=== PATIENT | male | born 1990 | race Caucasian/White ===

== ENCOUNTER 2021-09-08 12:43 | Inpatient (IN) | payer BC ==
[2021-09-08] MEDS ORDERED: MAG HYDROX/AL HYDROX/SIMETH 30 ML UNIT-DOSE CUP PO PRN (13:12)
[2021-09-08] MEDS ORDERED: BISMUTH SUBSALICYLATE 524 MG/30 ML PO PRN (13:12)
[2021-09-08] MEDS ORDERED: methaDONE HCL 10 MG TABLET (FOR DETOX USE ONLY) PO ONE (13:12)
[2021-09-08] MEDS ORDERED: MAGNESIUM HYDROX 2400MG/30ML ORAL SUSPENSION 30 ML CUP PO PRN (13:12)
[2021-09-08] MEDS ORDERED: ACETAMINOPHEN 325 MG TABLET (FP) PO PRN ×2 (13:12)
[2021-09-08] MEDS ORDERED: ONDANSETRON *ODT* 4 MG TABLET SL PRN (13:12)
[2021-09-08] MEDS ORDERED: METHOCARBAMOL 500 MG TABLET PO PRN (13:12)
[2021-09-08] MEDS ORDERED: cloNIDine HCL 0.1 MG TABLET PO PRN (13:12)
[2021-09-08] MEDS ORDERED: NICOTINE 10 MG CARTRIDGE (INHALER) IH PRN (13:12)
[2021-09-08] MEDS ORDERED: MAGNESIUM CITRATE 300 ML BOTTLE PO PRN (13:12)
[2021-09-08] MEDS ORDERED: LOPERAMIDE HCL 2 MG CAPSULE PO PRN (13:12)
[2021-09-08] MEDS ORDERED: MENTHOL/PHENOL 1 EACH UD MM PRN (13:12)
[2021-09-08] MEDS ORDERED: diazePAM 5 MG TABLET PO PRN (13:12)
[2021-09-08] MEDS ORDERED: IBUPROFEN 400 MG TABLET (FP) PO PRN (13:12)
[2021-09-08] MEDS ORDERED: NICOTINE 14 MG/24 HOURS TOPICAL PATCH TD SCH (13:15)
[2021-09-08] MEDS ORDERED: PRENATAL VITAMINS W/ FOLIC ACID TABLET (FP) PO SCH (13:15)
[2021-09-08] MEDS ORDERED: hydrOXYzine PAMOATE 25 MG CAPSULE (FP) PO SCH (14:00)
[2021-09-08 14:31] VITALS: BP 132/82; PULSE 93; TEMP 97.8; BMI 31.5
[2021-09-08 16:10] LABS: ALBUMIN 3.7 g/dl (3.4-5.0); BLOOD UREA NITROGEN 15.8 mg/dL (7-18)
[2021-09-08 16:13] LABS: CREATININE 0.8 mg/dL (0.55-1.3); HEMATOCRIT 40.6 % (35.4-49); HEMOGLOBIN 13.8 GM/dL (11.7-16.9); MCH 30.6 pg (25.7-33.7); MEAN CELL VOLUME 90.2 fl (80-96); MEAN PLT VOLUME 7.4 fl (7.5-11.1); PLATELET COUNT 252 10^3/uL (134-434); RDW 13.9 % (11.9-15.9)
[2021-09-08 16:15] LABS: BILIRUBIN,TOTAL 0.2 mg/dL (0.2-1); TOT PROT 7.2 g/dl (6.4-8.2)
[2021-09-08] MEDS ORDERED: diazePAM 5 MG TABLET PO SCH (17:00)
[2021-09-08] MEDS ORDERED: GABAPENTIN 300 MG CAPSULE PO SCH (22:00)
[2021-09-08] MEDS ORDERED: MELATONIN 5 MG TABLETS PO SCH (22:00)
[2021-09-08] MEDS ORDERED: THIAMINE HCL 100 MG TABLET (FP) PO SCH (22:00)
[2021-09-10] MEDS ORDERED: diazePAM 5 MG TABLET PO SCH (06:00)
[2021-09-10] MEDS ORDERED: methaDONE HCL 10 MG TABLET (FOR DETOX USE ONLY) PO ONE (10:00)
[2021-09-11] MEDS ORDERED: diazePAM 5 MG TABLET PO SCH (06:00)
[2021-09-12] MEDS ORDERED: diazePAM 5 MG TABLET PO ONE (06:00)
[2021-09-12] MEDS ORDERED: methaDONE HCL 10 MG TABLET (FOR DETOX USE ONLY) PO ONE (10:00)
== END 2021-09-08 23:59 | disposition home or self-care (01) | DRG 773 ==
LOC: YASAS 12:43 → Y6N 15:05
PROVIDERS: ADMIT Allergy & Immunology; ATTEND Allergy & Immunology
PROC: HZ2ZZZZ Detoxification Services for Substance Abuse Treatment (ICD-10-PCS; principal; 2021-09-08)
DX: F11.23 Opioid dependence with withdrawal (principal); F14.20 Cocaine dependence, uncomplicated; F13.20 Sedative, hypnotic or anxiolytic dependence, uncomplicated; F12.20 Cannabis dependence, uncomplicated; F17.210 Nicotine dependence, cigarettes, uncomplicated; F41.9 Anxiety disorder, unspecified; F32.A Depression, unspecified
CPT/HCPCS: 36415; 80053; 85027; 86780; C9803; U0003; U0005

== ENCOUNTER 2021-09-09 15:40 | Inpatient (IN) | payer BC ==
[2021-09-09 16:06] VITALS: BMI 31.5
[2021-09-09] MEDS ORDERED: NALOXONE (NARCAN) HCL 4 MG/0.1 ML SPRAY NS PRN (19:21)
[2021-09-09] MEDS ORDERED: ONDANSETRON *ODT* 4 MG TABLET SL PRN (19:21)
[2021-09-09] MEDS ORDERED: methaDONE HCL 10 MG TABLET (FOR DETOX USE ONLY) PO ONE ×2 (19:21→21:00)
[2021-09-09] MEDS ORDERED: MAGNESIUM CITRATE 300 ML BOTTLE PO PRN (19:21)
[2021-09-09] MEDS ORDERED: IBUPROFEN 400 MG TABLET (FP) PO PRN (19:21)
[2021-09-09] MEDS ORDERED: DICYCLOMINE HCL 10 MG CAPSULE PO PRN (19:21)
[2021-09-09] MEDS ORDERED: ACETAMINOPHEN 325 MG TABLET (FP) PO PRN ×2 (19:21)
[2021-09-09] MEDS ORDERED: BISMUTH SUBSALICYLATE 524 MG/30 ML PO PRN (19:21)
[2021-09-09] MEDS ORDERED: MAG HYDROX/AL HYDROX/SIMETH 30 ML UNIT-DOSE CUP PO PRN (19:21)
[2021-09-09] MEDS ORDERED: NICOTINE POLACRILEX 4 MG GUM BUC PRN (19:21)
[2021-09-09] MEDS ORDERED: MENTHOL/PHENOL 1 EACH UD MM PRN (19:21)
[2021-09-09] MEDS ORDERED: LOPERAMIDE HCL 2 MG CAPSULE PO PRN (19:21)
[2021-09-09] MEDS ORDERED: MAGNESIUM HYDROX 2400MG/30ML ORAL SUSPENSION 30 ML CUP PO PRN (19:21)
[2021-09-09] MEDS ORDERED: P-EPHED 60MG/TRIPROLIDI 2.5MG TABLET PO PRN (19:30)
[2021-09-09] MEDS ORDERED: methaDONE HCL 10 MG TABLET (FOR DETOX USE ONLY) ONE (21:43)
[2021-09-09] MEDS ORDERED: MELATONIN 5 MG TABLETS PO SCH (22:00)
[2021-09-09] MEDS ORDERED: hydrOXYzine PAMOATE 25 MG CAPSULE (FP) PO SCH (22:00)
[2021-09-09] MEDS: diazePAM 5 MG TABLET PO PRN (23:43)
[2021-09-09] MEDS: THIAMINE HCL 100 MG TABLET (FP) PO SCH (23:43)
[2021-09-10] MEDS ORDERED: methaDONE HCL 10 MG TABLET (FOR DETOX USE ONLY) ONE (10:13)
[2021-09-10] MEDS: METHOCARBAMOL 500 MG TABLET PO PRN (10:51)
[2021-09-10] MEDS: diazePAM 5 MG TABLET PO PRN ×2 (10:51→22:08)
[2021-09-10] MEDS: PRENATAL VITAMINS W/ FOLIC ACID TABLET (FP) PO SCH (10:52)
[2021-09-10] MEDS: NICOTINE 21 MG/24 HOURS TOPICAL PATCH TD SCH (10:52)
[2021-09-10] MEDS: GABAPENTIN 300 MG CAPSULE PO SCH ×2 (14:54→22:08)
[2021-09-10] MEDS: QUEtiapine FUMARATE 100 MG TABLET (FP) PO SCH (22:08)
[2021-09-10] MEDS: THIAMINE HCL 100 MG TABLET (FP) PO SCH (22:08)
[2021-09-10] MEDS: SUVOREXANT 10 MG TABLET PO PRN (22:09)
[2021-09-10] MEDS: cloNIDine HCL 0.1 MG TABLET PO PRN (22:11)
[2021-09-10] MEDS: NICOTINE 10 MG CARTRIDGE (INHALER) IH PRN (23:05)
[2021-09-11] MEDS: GABAPENTIN 300 MG CAPSULE PO SCH ×4 (06:16→22:09)
[2021-09-11] MEDS: cloNIDine HCL 0.1 MG TABLET PO PRN ×3 (07:47→22:12)
[2021-09-11] MEDS ORDERED: methaDONE HCL 10 MG TABLET (FOR DETOX USE ONLY) PO ONE (10:00)
[2021-09-11] MEDS: NICOTINE 21 MG/24 HOURS TOPICAL PATCH TD SCH (10:25)
[2021-09-11] MEDS: diazePAM 5 MG TABLET PO PRN (10:27)
[2021-09-11] MEDS: PRENATAL VITAMINS W/ FOLIC ACID TABLET (FP) PO SCH (10:28)
[2021-09-11] MEDS: METHOCARBAMOL 500 MG TABLET PO PRN (10:28)
[2021-09-11] MEDS: NICOTINE 10 MG CARTRIDGE (INHALER) IH PRN ×2 (10:29→22:12)
[2021-09-11 16:40] LABS: HEMATOCRIT 42.5 % (35.4-49); HEMOGLOBIN 14.3 GM/dL (11.7-16.9); MCH 30.4 pg (25.7-33.7); MCHC 33.8 g/dl (32.0-35.9); MEAN PLT VOLUME 7.5 fl (7.5-11.1); PLATELET COUNT 268 10^3/uL (134-434); RBC 4.72 M/mm3 (4.00-5.60); RDW 14.3 % (11.9-15.9); WHITE BLOOD COUNT 17.4 K/mm3 (4.0-10.0)
[2021-09-11 16:42] LABS: CALCIUM 9.5 mg/dL (8.5-10.1)
[2021-09-11 16:43] LABS: ALBUMIN 3.5 g/dl (3.4-5.0)
[2021-09-11 16:46] LABS: CREATININE 0.9 mg/dL (0.55-1.3)
[2021-09-11 16:47] LABS: BILIRUBIN,TOTAL 0.3 mg/dL (0.2-1)
[2021-09-11 16:48] LABS: TOT PROT 6.9 g/dl (6.4-8.2)
[2021-09-11] MEDS: SUVOREXANT 10 MG TABLET PO PRN (22:09)
[2021-09-11] MEDS: QUEtiapine FUMARATE 100 MG TABLET (FP) PO SCH (22:09)
[2021-09-11] MEDS: THIAMINE HCL 100 MG TABLET (FP) PO SCH (22:09)
[2021-09-12] MEDS: diazePAM 5 MG TABLET PO PRN ×4 (00:31→18:10)
[2021-09-12] MEDS: METHOCARBAMOL 500 MG TABLET PO PRN ×3 (00:31→22:24)
[2021-09-12] MEDS: hydrOXYzine PAMOATE 25 MG CAPSULE (FP) PO PRN ×2 (05:40→22:24)
[2021-09-12] MEDS: GABAPENTIN 300 MG CAPSULE PO SCH ×3 (05:40→22:24)
[2021-09-12 08:10] LABS: SARS-CoV-2 NAA Not Detected (Not Detected)
[2021-09-12] MEDS ORDERED: methaDONE HCL 10 MG TABLET (FOR DETOX USE ONLY) ONE (09:17)
[2021-09-12] MEDS: NICOTINE 21 MG/24 HOURS TOPICAL PATCH TD SCH (09:34)
[2021-09-12] MEDS: PRENATAL VITAMINS W/ FOLIC ACID TABLET (FP) PO SCH (09:34)
[2021-09-12] MEDS: cloNIDine HCL 0.1 MG TABLET PO PRN ×2 (14:35→22:26)
[2021-09-12] MEDS: NICOTINE 10 MG CARTRIDGE (INHALER) IH PRN ×2 (14:35→22:25)
[2021-09-12] MEDS: SUVOREXANT 10 MG TABLET PO PRN (22:23)
[2021-09-12] MEDS: THIAMINE HCL 100 MG TABLET (FP) PO SCH (22:24)
[2021-09-12] MEDS: QUEtiapine FUMARATE 100 MG TABLET (FP) PO SCH (23:04)
[2021-09-13] MEDS: GABAPENTIN 300 MG CAPSULE PO SCH ×3 (05:12→21:32)
[2021-09-13] MEDS ORDERED: methaDONE HCL 10 MG TABLET (FOR DETOX USE ONLY) PO ONE (10:00)
[2021-09-13] MEDS: METHOCARBAMOL 500 MG TABLET PO PRN (10:06)
[2021-09-13] MEDS: PRENATAL VITAMINS W/ FOLIC ACID TABLET (FP) PO SCH (10:07)
[2021-09-13] MEDS: NICOTINE 21 MG/24 HOURS TOPICAL PATCH TD SCH (10:07)
[2021-09-13] MEDS: NICOTINE 10 MG CARTRIDGE (INHALER) IH PRN ×2 (10:09→17:58)
[2021-09-13] MEDS: cloNIDine HCL 0.1 MG TABLET PO PRN ×2 (13:37→21:35)
[2021-09-13] MEDS: hydrOXYzine PAMOATE 25 MG CAPSULE (FP) PO PRN (21:32)
[2021-09-13] MEDS: SUVOREXANT 10 MG TABLET PO PRN (21:32)
[2021-09-13] MEDS: THIAMINE HCL 100 MG TABLET (FP) PO SCH (21:32)
[2021-09-13] MEDS: QUEtiapine FUMARATE 100 MG TABLET (FP) PO SCH (21:33)
[2021-09-14] MEDS: GABAPENTIN 300 MG CAPSULE PO SCH (06:53)
[2021-09-14 09:02] VITALS: BP 115/81; PULSE 79; TEMP 97
== END 2021-09-14 10:37 | disposition other institution (70) | DRG 773 ==
LOC: YASAS 15:40 → Y3N 23:06
PROVIDERS: ADMIT Allergy & Immunology; ATTEND Allergy & Immunology
PROC: HZ2ZZZZ Detoxification Services for Substance Abuse Treatment (ICD-10-PCS; principal; 2021-09-09)
DX: F11.23 Opioid dependence with withdrawal (principal); F14.20 Cocaine dependence, uncomplicated; F12.20 Cannabis dependence, uncomplicated; F17.210 Nicotine dependence, cigarettes, uncomplicated; F19.282 Other psychoactive substance dependence with psychoactive substance-induced sleep disorder; F19.280 Other psychoactive substance dependence with psychoactive substance-induced anxiety disorder; F41.8 Other specified anxiety disorders; F32.A Depression, unspecified; F43.10 Post-traumatic stress disorder, unspecified; Z62.810 Personal history of physical and sexual abuse in childhood
CPT/HCPCS: 36415; 80053; 85027; 86780; 87811; 93005; 93010; C9803; J0735; U0003; U0005